=== PATIENT | female | born 1970 | race African-American/Black ===

== ENCOUNTER 2023-07-03 21:10 | Inpatient (IN) | payer MEDICAID ==
[~2023-07-03] VITALS: Ht 160 cm; Wt 77.2 kg
[2023-07-03] MEDS ORDERED: NITROGLYCERIN 50MG/250ML 250 ML IV ONE (21:45)
[2023-07-03 21:50] VITALS: PULSE 81; RESP 33; O2SAT 99
[2023-07-03 21:51] LABS: Basophils # (auto) 0.1 10 ^3/uL (0-0.2); Basophils % (auto) 0.6 % (0.0-2.0); Eosinophils # (auto) 0 10 ^3/uL (0-0.8); Eosinophils % (auto) 0.3 % (0.0-7.0); Hematocrit 35.3 % (36.0-46.0); Hemoglobin 11.8 g/dL (12.2-16.2); Lymphocytes # (auto) 1.1 10 ^3/uL (0.4-5.4); Lymphocytes % (auto) 13.6 % (10.0-50.0); Mean Corpuscular Hemoglobin 30.6 pg (28.0-32.0); Mean Corpuscular Hgb Conc. 33.5 g/dL (32.0-36.0); Mean Corpuscular Volume 91.3 fL (80.0-100.0); Monocytes # (auto) 0.3 10 ^3/uL (0-1.3); Monocytes % (auto) 4.1 % (0.0-12.0); Neutrophils # (auto) 6.6 10 ^3/uL (1.6-8.6); Neutrophils % (auto) 81.4 % (37.0-80.0); Nucleated Red Blood Cells % 0.1 %; Red Blood Cells 3.87 10^6/uL (4.0-5.20); White Blood Cell 8.1 10^3/uL (4.4-10.8)
[2023-07-03 22:00] VITALS: BP 246/169; PULSE 101; O2SAT 97
[2023-07-03 22:09] LABS: Albumin 4.4 g/dL (3.2-4.8); Alkaline Phosphatase 107 U/L (46-116); Aspartate Aminotransferase 10 U/L (13-40); BUN/Creatinine Ratio 11.6 (10.0-20.0); Bilirubin, Total 1.9 mg/dL (0.2-1.0); Blood Urea Nitrogen 18 mg/dL (9-23); Calcium 9.9 mg/dL (8.7-10.4); Chloride 105 mmol/L (98-107); Glucose 124 mg/dL (74-106); Sodium 138 mmol/L (136-145); Total Protein 7.3 g/dL (5.7-8.2)
[2023-07-03 22:11] LABS: Alanine Aminotransferase < 9 U/L (7-40)
[2023-07-03] MEDS ORDERED: MORPHINE SULFATE 4 MG/ML SYR/VIAL IV ONE (22:15)
[2023-07-03] MEDS ORDERED: ONDANSETRON HCL 4 MG/2 ML VIAL ONE (22:33)
[2023-07-03 22:36] LABS: INR 1.25 (0.9-1.15); Partial Thromboplastin Time 30.3 SEC (24.5-34.5); Prothrombin Time 12.9 sec (9.3-11.8)
[2023-07-03] MEDS ORDERED: FUROSEMIDE 100 MG/10ML VIAL IV ONE (22:45)
[2023-07-03] MEDS ORDERED: ONDANSETRON HCL 4 MG/2 ML VIAL IV ONE (22:45)
[2023-07-03] MEDS ORDERED: LORazepam 2MG/ML-1ML VIAL IV ONE (22:45)
[2023-07-04] MEDS ORDERED: hydrALAZINE HCL 10 MG TAB PO PRN (01:30)
[2023-07-04] MEDS ORDERED: MORPHINE SULFATE INJ 2 MG/ml SYRG IV PRN (01:30)
[2023-07-04] MEDS ORDERED: NITROGLYCERIN 0.4 MG SL TAB SL PRN (01:30)
[2023-07-04] MEDS ORDERED: HYDROcodone-ACET 5/325MG TAB PO PRN (01:30)
[2023-07-04] MEDS ORDERED: ONDANSETRON HCL 4 MG/2 ML VIAL IV PRN (01:30)
[2023-07-04] MEDS ORDERED: ACETAMINOPHEN 325 MG TAB PO PRN (01:30)
[2023-07-04 01:45] VITALS: PULSE 83; RESP 20; O2SAT 95
[2023-07-04] MEDS ORDERED: ENOXAPARIN SOD 80 MG/0.8ML SYRINGE SC ONE (01:45)
[2023-07-04 01:53] LABS: Urine WBC None Seen /hpf (0 - 5)
[2023-07-04] MEDS: POTASSIUM CHL 20MEQ/100ML 100 ML IV SCH ×2 (02:12→05:38)
[2023-07-04 02:15] VITALS: BP 192/120; PULSE 81; RESP 18; O2SAT 95
[2023-07-04 02:29] LABS: Urine Bacteria NONE SEEN /hpf (None Seen); Urine Blood Negative /uL (Negative); Urine Clarity Clear (Clear); Urine Color Colorless (Yellow); Urine Protein, UAD 1+ (Negative); Urine Specific Gravity 1.005 (1.001-1.035); Urine Urobilinogen Normal (Negative); Urine pH 6.5 (5.0-8.0)
[2023-07-04 02:38] LABS: Amphetamine Screen, Urine Neg (NEGATIVE); Barbiturate Scree,Urine Neg (NEGATIVE); Benzodiazephine Screen, Urine Neg (NEGATIVE); Cannabinoid Screen, Urine Neg (NEGATIVE); Cocaine Screen, Urine Neg (NEGATIVE); Opiate Scree,Urine Neg (NEGATIVE); Phencyclidine Screen, Urine Neg (NEGATIVE)
[2023-07-04] MEDS: ASPirin 81 mg TAB PO SCH ×2 (05:37→09:13)
[2023-07-04 08:09] VITALS: PULSE 69; RESP 16; O2SAT 97
[2023-07-04 08:57] LABS: Chloride 107 mmol/L (98-107); Potassium 3.7 mmol/L (3.5-5.1); Sodium 142 mmol/L (136-145)
[2023-07-04 08:58] LABS: Anion Gap 12.6 (5-15); Carbon Dioxide 22.4 mmol/L (20-30)
[2023-07-04 08:59] LABS: Calcium 9.6 mg/dL (8.5-10.1)
[2023-07-04 09:03] LABS: Glucose 125 mg/dL (74-106)
[2023-07-04 09:04] LABS: BUN/Creatinine Ratio 8.9 (10.0-20.0); Blood Urea Nitrogen 15 mg/dL (9-23)
[2023-07-04] MEDS ORDERED: FUROSEMIDE 40 MG/4 ML VIAL IV SCH (10:00)
[2023-07-04 14:00] VITALS: BP 155/80; RESP 18; TEMP 98.6; O2SAT 96
[2023-07-04 14:03] VITALS: PULSE 76
[2023-07-04] MEDS ORDERED: ATORVASTATIN 20 MG TAB PO SCH (22:00)
== END 2023-07-04 14:31 | disposition short-term general hospital (02) | DRG 44 ==
LOC: EDUNIT# 21:10 → EDBD 21:10 → ER 21:14 → TELE 07-04 01:28
PROVIDERS: ADMIT Nurse Practitioner Family; ATTEND Internal Medicine
PROC: 5A09357 Assistance with Respiratory Ventilation, Less than 24 Consecutive Hours, Continuous Positive Airway Pressure (ICD-10-PCS; principal; 2023-07-03)
DX: I62.9 Nontraumatic intracranial hemorrhage, unspecified (principal); J96.00 Acute respiratory failure, unspecified whether with hypoxia or hypercapnia; I50.33 Acute on chronic diastolic (congestive) heart failure; N17.9 Acute kidney failure, unspecified; I13.0 Hypertensive heart and chronic kidney disease with heart failure and stage 1 through stage 4 chronic kidney disease, or unspecified chronic kidney disease; I24.8 Other forms of acute ischemic heart disease; I16.1 Hypertensive emergency; K59.00 Constipation, unspecified; E87.6 Hypokalemia; N18.32 Chronic kidney disease, stage 3b; F17.210 Nicotine dependence, cigarettes, uncomplicated; J44.9 Chronic obstructive pulmonary disease, unspecified; Z91.148 Patient's other noncompliance with medication regimen for other reason
CPT/HCPCS: 36415; 70450; 71045; 80048; 80053; 80307; 81001; 83735; 83880; 84484; 85025; 85610; 85730; 93005; 93306; 94660; 99291; G0378; J2405; J3480